=== PATIENT | male | born 2000 | race American Indian/Alaskan Native ===

== ENCOUNTER 2020-03-04 18:56 | Emergency (ER) | payer SELFPAY ==
[2020-03-04 19:18] VITALS: BP 130/91
--- NOTE | 2020-03-04 19:43 | XRay Report ---
CHEST 2 VIEWS INDICATION / CLINICAL INFORMATION: Chest Pain. COMPARISON: None available. FINDINGS: SUPPORT DEVICES: None. HEART / MEDIASTINUM: The heart size and pulmonary vasculature are normal. The aorta is normal in [place]. LUNGS / PLEURA: No significant pulmonary or pleural abnormality. No pneumothorax. ADDITIONAL FINDINGS: No significant additional findings. IMPRESSION: No acute findings. Signer Name: Salinas Colorado MD Signed: 03/04/2020 7:39 PM Workstation Name: [id number]
--- NOTE | 2020-03-04 21:34 | Emergency Department Report ---
ED Medical Clearance HPI - General Chief complaint: Arrhythmia/Palpitations Stated complaint: PULSE IS HIGH Time Seen by Provider: 03/04/20 21:22 Source: patient Mode of arrival: Ambulatory - History of Present Illness Initial comments: 19-year-old -Greek male presents to the emergency room reporting that his pulse was too high that he was not able to donate plasma. Patient denies any drug use, no EtOH, no meds, no past medical history, no chest pain, no shortness of breath and no pain at all. -: This evening Place: street Alledged Intoxication: No Compliant with Home Medications: No Associated Symptoms: denies: chest pain, shortness of breath, denies other symptoms, confusion, cough, fever/chills, headaches, anorexia, malaise, nausea/vomiting, syncope, weakness Treatments Prior to Arrival: none Allergies/Adverse reactions: Allergies Allergy/AdvReac Type Severity Reaction Status Date / Time No Known Allergies Allergy Unverified 03/04/20 19:18 ED Review of Systems ROS: Stated complaint: PULSE IS HIGH Other details as noted in HPI Comment: All other systems reviewed and negative ED Past Medical Hx - Past Medical History Previous Medical History?: No - Surgical History Past Surgical History?: No - Social History Smoking Status: Never Smoker Substance Use Type: None ED Physical Exam - General Limitations: No Limitations General appearance: alert, in no apparent distress - Head Head exam: Present: atraumatic, normocephalic - Eye Eye exam: Present: normal appearance - ENT ENT exam: Present: mucous membranes moist - Neck Neck exam: Present: normal inspection - Respiratory Respiratory exam: Present: normal lung sounds bilaterally. Absent: respiratory distress - Cardiovascular Cardiovascular Exam: Present: regular rate, normal rhythm. Absent: systolic murmur, diastolic murmur, rubs, gallop - GI/Abdominal GI/Abdominal exam: Present: soft, normal bowel sounds - Rectal Rectal exam: Present: deferred - Extremities Exam Extremities exam: Present: normal inspection - Back Exam Back exam: Present: normal inspection - Neurological Exam Neurological exam: Present: alert, oriented X3 - Psychiatric Psychiatric exam: Present: normal affect, normal mood - Skin Skin exam: Present: warm, dry, intact, normal color. Absent: rash ED Course Vital Signs 03/04/20 03/04/20 19:06 20:55 Temperature 98.6 F Pulse Rate 115 H 97 H Respiratory 20 17 Rate Blood Pressure 130/91 O2 Sat by Pulse 99 99 Oximetry ED Medical Decision Making - Radiology Data Radiology results: report reviewed Print Report Referring Physician:HEIDY DUNCANPatient Name:ZAFAR HENDRICKSPatient ID:[id number] of :[id number]:MaleAccession:[id number] Date:[id number] Status:Finalized Findings [facility] [address] [place] [address] XRay Report Signed Patient: ZAFAR HENDRICKS MR#: [id number] : 2000 Acct:[id number] Age/Sex: 19 / M ADM Date: 03/04/20 Loc: ED Attending Dr: Ordering Physician: HEIDY DUNCAN MD Date of Service: 03/04/20 Procedure(s): XR chest routine 2V Accession Number(s): [id number] cc: HEIDY DUNCAN MD Fluoro Time In Minutes: CHEST 2 VIEWS INDICATION / CLINICAL INFORMATION: Chest Pain. COMPARISON: None available. FINDINGS: SUPPORT DEVICES: None. HEART / MEDIASTINUM: The heart size and pulmonary vasculature are normal. The aorta is normal in caliber. LUNGS / PLEURA: No significant pulmonary or pleural abnormality. No pneumothorax. ADDITIONAL FINDINGS: No significant additional findings. IMPRESSION: No acute findings. Signer Name: Salinas Colorado MD Signed: 03/04/2020 7:39 PM Workstation Name: [id number] Transcribed By: RT Dictated By: Salinas Colorado MD Electronically Authenticated By: Salinas Colorado MD Signed Date/Time: 03/04/201938 DD/ 37 TD/TT: - Medical Decision Making 19-year-old -Greek male presents to the emergency room reporting that his pulse was too high that he was not able to donate plasma. Patient denies any drug use, no EtOH, no meds, no past medical history, no chest pain, no shortness of breath and no pain at all. Patient is EKG shows tachycardic but otherwise normal Repeat heart rate 86 and pulse ox 100% on room air. ED Disposition Clinical Impression: Atrial tachycardia Disposition: DC-01 TO HOME OR SELFCARE Is pt being admited?: No Does the pt Need Aspirin: No Condition: Stable Additional Instructions: Please follow-up with your primary care provider. Referrals: PRIMARY CARE, [Primary Care Provider] - 3-5 Days
== END 2020-03-04 21:50 | disposition home or self-care (01) ==
LOC: ED 18:56
DX: R00.0 Tachycardia, unspecified (principal)
CPT/HCPCS: 71046; 93005; 93010